=== PATIENT | female | born 1965 | race Caucasian/White ===

== ENCOUNTER 2018-04-27 10:52 | Emergency (ER) | payer SELFPAY ==
[2018-04-27] MEDS ORDERED: methylPREDNISolone Sod Succ/PF 125 MG/2 ML VIAL ONE (11:14)
[2018-04-27] MEDS ORDERED: diphenhydrAMINE 50 MG/ML VIAL ONE (11:14)
== END 2018-04-27 12:30 | disposition home or self-care (01) ==
LOC: NAV ERS 10:52
DX: L29.9 Pruritus, unspecified (principal); R06.02 Shortness of breath; T39.315A Adverse effect of propionic acid derivatives, initial encounter; I10 Essential (primary) hypertension; J45.909 Unspecified asthma, uncomplicated; F32.9 Major depressive disorder, single episode, unspecified; F17.210 Nicotine dependence, cigarettes, uncomplicated; Z79.899 Other long term (current) drug therapy
CPT/HCPCS: 96372; 99406; J1200; J2930

== ENCOUNTER 2018-07-16 11:53 | Emergency (ER) | payer SELFPAY ==
[2018-07-16] MEDS ORDERED: Sodium Chloride 0.9% 1,000 ML ONE (12:38)
[2018-07-16] MEDS ORDERED: Ondansetron PF 4 MG/2 ML Vial ONE (12:56)
[2018-07-16 13:16] LABS: ALT (SGPT) 123 U/L (8-55); AST (SGOT) 99 U/L (5-34); Albumin 3.7 g/dL (3.5-5.0); Alkaline Phosphatase 509 U/L (40-150); Anion Gap 26 mmol/L (10-20); BUN (Urea Nitrogen) 18 mg/dL (9.8-20.1); Bilirubin, Total 5.6 mg/dL (0.2-1.2); CK (CPK) 108 U/L (29-168); Calc. Creatinine Clearance 0 mL/min (70-130); Calcium 9.4 mg/dL (7.8-10.44); Carbon Dioxide 14 mmol/L (22-29); Chloride 93 mmol/L (98-107); Estimated GFR-MDRD 26; Globulin 2.3 g/dL (2.4-3.5); Glucose 120 mg/dL (70-105); Lipase 7 U/L (8-78); Potassium 3.3 mmol/L (3.5-5.1); Sodium 130 mmol/L (136-145)
[2018-07-16 13:22] LABS: Band 8 % (5-11); Hemoglobin 14.7 g/dL (12.0-16.0); Lymphocytes 3 % (21-51); MDiff Complete? YES; Mean Corpuscular Hemoglobin 30.1 pg (27.0-31.0); Mean Corpuscular Volume 91.1 fL (78.0-98.0); Mean Platelet Volume 7.3 fL (7.4-10.4); Monocytes 8 % (0-10); Neutrophil 80 % (42-75); Platelet Count 194 thou/uL (130-400); Platelet Morphology Comment Appears Adequate; RBC Distribution Width 12.4 % (11.5-14.5); Reactive Lymphocytes 1 % (0-10); Red Blood Cell (RBC) Count 4.88 mill/uL (4.20-5.40); Vacuoles SLIGHT
[2018-07-16] MEDS ORDERED: cefTRIAXone\\ROCEPHIN 2 GM VIAL ONE (13:53)
[2018-07-16 14:06] LABS: Bilirubin Large (Negative); Blood, Urine Moderate (Negative); Glucose, Urine (Dipstick) Negative (Negative); Nitrite Negative (Negative); Protein, Urine (Dipstick) > or equal to 300 mg/dL (Neg-Trace); pH, Urine 5.5 (5.0-9.0)
[2018-07-16 14:10] LABS: Clarity Hazy (Clear)
[2018-07-16 14:19] LABS: Bacteria/HPF 2+ HPF (None Seen)
[2018-07-16 14:20] LABS: Crystals/HPF 2+ AMORPH URATES HPF (Negative); Hyaline Casts/LPF 0-3 HYALINE CAST LPF (0-3 Hyaline); Other Casts/LPF 0-3 FINELY GRAN LPF (0-3 Hyaline)
[2018-07-16] MEDS ORDERED: Sodium Chloride 0.9% 250 ML 250 ML ONE (14:21)
[2018-07-16 14:22] LABS: Leukocyte Negative (Negative)
--- NOTE | 2018-07-16 14:45 | RAD ---
SINGLE VIEW OF THE CHEST: COMPARISON: 06/25/2015. HISTORY: Nausea and vomiting. FINDINGS: Single view of the chest shows a normal sized cardiomediastinal silhouette. There is no evidence of c onsolidation, mass, or pleural effusion. The bones are unremarkable. IMPRESSION: No evidence of acute cardiopulmonary disease. POS: [facility]
[2018-07-16] MEDS ORDERED: Norepinephrine 8 MG/0.9% NS 250 ML ONE (15:30)
== END 2018-07-16 16:05 | disposition short-term general hospital (02) ==
LOC: NAV ERS 11:53
DX: A41.9 Sepsis, unspecified organism (principal); I10 Essential (primary) hypertension; J45.909 Unspecified asthma, uncomplicated; F32.9 Major depressive disorder, single episode, unspecified; F17.210 Nicotine dependence, cigarettes, uncomplicated; Z79.899 Other long term (current) drug therapy
CPT/HCPCS: 36556; 51701; 71045; 80053; 81003; 81015; 82550; 83605; 83690; 84484; 85025; 87040; 87077; 87086; 87149; 87186; 93005; 96360; 96361; 96365; 96367; 96375; A4353; J0696; J2405; J3370; J7050

== ENCOUNTER 2018-07-20 14:13 | Emergency (ER) | payer SELFPAY ==
[~2018-07-20 14:13] MED LIST: Iopamidol 370 76% 100 ML VIAL ONE
[2018-07-20 14:46] LABS: #Basophils 0.1 thou/uL (0.0-0.2); #Lymphocytes 0.9 thou/uL (1.20-3.40); #Monocytes 0.9 thou/uL (0.11-0.59); #Neutrophils 11.5 thou/uL (1.40-6.50); %Basophils 0.5 % (0.0-1.0); %Eosinophils 0.1 % (0.0-10.0); %Monocytes 6.4 % (0.0-10.0); Hemoglobin 11.3 g/dL (12.0-16.0); Mean Corpuscular HGB CONC 33.7 g/dL (32.0-36.0); Mean Corpuscular Volume 91.8 fL (78.0-98.0); Mean Platelet Volume 7.8 fL (7.4-10.4); Platelet Count 130 thou/uL (130-400); RBC Distribution Width 12.7 % (11.5-14.5); Red Blood Cell (RBC) Count 3.64 mill/uL (4.20-5.40); White Blood Cell (WBC) Count 13.4 thou/uL (4.8-10.8)
[2018-07-20] MEDS ORDERED: Aspirin Chewable 81 MG TAB ONE (14:53)
[2018-07-20] MEDS ORDERED: Nitroglycerin 2% Ointment 1 INCH/1 GM Packet ONE (14:53)
[2018-07-20 15:01] LABS: ALT (SGPT) 102 U/L (8-55); AST (SGOT) 50 U/L (5-34); Albumin 3.2 g/dL (3.5-5.0); Alkaline Phosphatase 193 U/L (40-150); Anion Gap 13 mmol/L (10-20); BUN (Urea Nitrogen) 9 mg/dL (9.8-20.1); Bilirubin, Total 1.3 mg/dL (0.2-1.2); Calc. Creatinine Clearance 0 mL/min (70-130); Carbon Dioxide 23 mmol/L (22-29); Chloride 106 mmol/L (98-107); Estimated GFR-MDRD 71; Globulin 2.5 g/dL (2.4-3.5); Glucose 155 mg/dL (70-105); Protein, Total 5.7 g/dL (6.0-8.3); Sodium 139 mmol/L (136-145)
[2018-07-20 15:07] LABS: Potassium 2.8 mmol/L (3.5-5.1)
[2018-07-20 15:21] LABS: CKMB 1.2 ng/mL (0-6.6)
[2018-07-20] MEDS ORDERED: Potassium Chloride 20 MEQ TAB ONE (15:26)
[2018-07-20 15:48] LABS: INR-International Normal Ratio 0.9; PTT 28.8 SEC (22.9-36.1); Prothrombin Time 12.7 SEC (12.0-14.7)
--- NOTE | 2018-07-20 16:02 | RAD ---
CHEST 2 VIEWS: Date: 07/20/18 HISTORY: Chest pain. COMPARISON: Chest radiograph dated 07/16/18. FINDINGS: Mild blunting left lateral costophrenic sulcus and right lateral costophrenic sulcus. No pneumothorax . No focal air space consolidation. No significant pulmonary edema. IMPRESSION: New small bilateral pleural effusions. POS: [facility]
--- NOTE | 2018-07-20 16:44 | CT ---
CT ARTERIOGRAM CHEST WITH IV CONTRAST AND 3D MIP IMAGING: Date: 07/20/18 HISTORY: Chest pain. Dyspnea. Elevated D-Dimer. FINDINGS: There is good contrast opacification of pulmonary arteries and thoracic aorta with bovine origin of t he great vessels at the aortic arch. Small amount of bilateral pleural fluid and bibasilar lung atele ctasis. There is a 0.4 cm noncalcified subpleural nodule at the posterolateral aspect of the right up per lobe. At the posteromedial aspect of the superior segment right lower lobe, a 0.7 cm noncalcified nodule abuts the pleural surface. Within the partially visualized upper abdomen, biliary stent and p neumobilia are partially visualized. IMPRESSION: 1. No CT evidence of pulmonary embolus. 2. Small noncalcified right lung nodules measuring up to 0.6 cm. Please consider follow-up CT chest in 6 months to evaluate for stability. 3. Small bilateral pleural effusions. Cause is not apparent. POS: [facility]
== END 2018-07-20 17:12 | disposition short-term general hospital (02) ==
LOC: NAV ERS 14:13
DX: R07.2 Precordial pain (principal); E87.6 Hypokalemia; R79.89 Other specified abnormal findings of blood chemistry; R06.02 Shortness of breath; G47.00 Insomnia, unspecified; I10 Essential (primary) hypertension; J45.909 Unspecified asthma, uncomplicated; F32.9 Major depressive disorder, single episode, unspecified; F17.210 Nicotine dependence, cigarettes, uncomplicated; Z79.899 Other long term (current) drug therapy
CPT/HCPCS: 71046; 71275; 80053; 82553; 84484; 85025; 85379; 85610; 85730; 93005; 94760; Q9967